=== PATIENT | female | born 2000 | race Caucasian/White ===

== ENCOUNTER 2023-01-09 18:32 | Emergency (ER) | payer SELFPAY ==
[~2023-01-09] VITALS: Ht 162.6 cm; Wt 49.9 kg
[2023-01-09] MEDS: IV NORMAL SALINE 1000 ML BAG IV ONE (19:10)
[2023-01-09] MEDS ORDERED: LORAZEPAM 2 MG/1 ML VIAL ONE (19:17)
[2023-01-09] MEDS: LORAZEPAM 2 MG/1 ML VIAL IV ONE (19:21)
[2023-01-09 19:37] LABS: BASOPHILS % (AUTO) 0.3 % (0.0-2.0); EOSINOPHILS # (AUTO) 0.1 K/uL (0.0-0.7); EOSINOPHILS % (AUTO) 0.6 % (0.0-7.0); HEMATOCRIT 40.8 % (31.2-41.9); HEMOGLOBIN 13.9 g/dL (10.9-14.3); LYMPHOCYTES # (AUTO) 1.6 K/uL (0.8-4.8); LYMPHOCYTES % (AUTO) 15.7 % (20.5-51.5); MEAN CORPUSCULAR HGB CONC 34 g/dL (32.3-35.6); MEAN CORPUSCULAR VOLUME 90.9 fL (75.5-95.3); MONOCYTES # (AUTO) 0.9 K/uL (0.1-1.30); MONOCYTES % (AUTO) 9.1 % (0.0-11.0); NEUTROPHILS # (AUTO) 7.7 K/uL (1.8-8.9); NEUTROPHILS % (AUTO) 74.3 % (38.5-71.5); PLATELET COUNT (AUTO) 320 K/uL (179-408); RED BLOOD CELL COUNT(AUTO) 4.49 MIL/uL (3.63-4.92); RED CELL DISTRIBUTION WIDTH 12.8 % (12.3-17.7); WHITE BLOOD COUNT (AUTO) 10.3 K/uL (3.8-11.8)
[2023-01-09 19:40] LABS: CALCIUM 9.3 mg/dL (8.5-10.1); CARBON DIOXIDE 23 mmol/L (21-32); CHLORIDE 99 mmol/L (98-107); GLUCOSE 78 mg/dL (74-106); POTASSIUM 3.6 mmol/L (3.5-5.1); SODIUM SERUM 139 mmol/L (136-145); UREA NITROGEN, BLOOD 21 mg/dL (7-18)
[2023-01-09 19:45] LABS: ALANINE AMINOTRANSFERASE 20 U/L (14-59); ALBUMIN 4.5 g/dL (3.4-5.0); ALKALINE PHOSPHATASE 62 U/L (50-136); ASPARTATE AMINOTRANSFERASE 14 U/L (15-37); BILIRUBIN,DIRECT 0.4 mg/dL (0.0-0.2); BILIRUBIN,TOTAL 1.6 mg/dL (0.2-1.0); TOTAL PROTEIN, SERUM 7.4 g/dL (6.4-8.2)
[2023-01-09 19:47] LABS: ACETAMINOPHEN < 2.0 ug/mL (10-30)
[2023-01-09 19:56] LABS: ETHANOL < 3 MG/DL (0-10)
[2023-01-09 20:21] VITALS: BP 112/90; O2SAT 100
== END 2023-01-09 20:07 | disposition left against medical advice (07) ==
LOC: ER 18:34
DX: F15.10 Other stimulant abuse, uncomplicated (principal); F14.10 Cocaine abuse, uncomplicated; Z59.00 Homelessness unspecified
CPT/HCPCS: 80076; 80048; 85025; 36415; 93005; 99284; 96361; 96374; 80299; 80320; J2060; J7040; A4663; G0480